=== PATIENT | female | born 1960 | race Hispanic/Latino ===

== ENCOUNTER 2021-07-07 00:52 | Emergency (ER) | payer MEDICARE ==
[~2021-07-07] VITALS: Ht 162.6 cm; Wt 97.1 kg
[~2021-07-07 00:52] MED LIST: AMIODARONE HCL200 MG PO; ARTHRITIS; ASPIRIN CHEW81 MG PO; BACTRIM DS TAB1 EACH PO; CALTRATE 600 W1 EACH PEG; FISH OIL 1,0001 EAC1 PO; HYDROXYZINE HCL25 MG PO; ISOSORBIDE MONO30 MG PO; METFORMIN HCL500 M2 PO; PREDNISONE20 MG PO; RAMIPRIL5 MG PO; RANITIDINE HCL150 MG PO; XARELTO10 MG PO
[2021-07-07 01:45] LABS: CLARITY,URINE CLEAR (CLEAR); COLOR,URINE YELLOW (YELLOW); KETONES,URINE NEGATIVE (NEGATIVE); LEUKOCYTE ESTERASE ,URINE NEGATIVE (NEGATIVE); NITRITE,URINE NEGATIVE (NEGATIVE); PROTEIN,URINE DIPSTICK NEGATIVE (NEGATIVE); URINE UROBILINOGEN 0.2 mg/dL (0.2 - 1)
[2021-07-07 01:52] LABS: BACTERIA,URINE FEW /HPF; EPITHELIAL CELLS,URINE MODERATE /LPF; RBC,URINE 0-5 /HPF (0-5)
== END 2021-07-07 02:14 | disposition home or self-care (01) ==
LOC: ER 01:18
DX: R30.0 Dysuria (principal); R10.30 Lower abdominal pain, unspecified; N39.0 Urinary tract infection, site not specified; Z96.651 Presence of right artificial knee joint
CPT/HCPCS: 81001; 99282

== ENCOUNTER 2021-10-28 10:29 | Emergency (ER) | payer MEDICARE ==
[~2021-10-28] VITALS: Ht 162.6 cm; Wt 108.7 kg
[2021-10-28] MEDS ORDERED: FLECAINIDE ACE100 MG PO (10:47)
[2021-10-28] MEDS ORDERED: SIMVASTATIN20 MG PO (10:47)
[2021-10-28] MEDS ORDERED: PYRIDIUM200 MG PO (10:51)
[2021-10-28] MEDS ORDERED: MACROBID 100 M100 MG PO (10:51)
== END 2021-10-28 11:00 | disposition home or self-care (01) ==
LOC: FSED 10:35
DX: N39.0 Urinary tract infection, site not specified (principal); M54.50 Low back pain, unspecified; I10 Essential (primary) hypertension; E11.9 Type 2 diabetes mellitus without complications; I48.91 Unspecified atrial fibrillation; E78.5 Hyperlipidemia, unspecified; Z79.02 Long term (current) use of antithrombotics/antiplatelets; Z79.84 Long term (current) use of oral hypoglycemic drugs; Z79.899 Other long term (current) drug therapy
CPT/HCPCS: 81003; 87086; 99283

== ENCOUNTER 2023-02-02 19:45 | Emergency (ER) | payer MEDICARE ==
[~2023-02-02] VITALS: Ht 162.6 cm; Wt 108.4 kg
[~2023-02-02 19:45] MED LIST changes: +FLECAINIDE ACE100 MG PO; +MACROBID 100 M100 MG PO; +PYRIDIUM200 MG PO; +SIMVASTATIN20 MG PO
[2023-02-02] MEDS ORDERED: SODIUM CHLORIDE 0.9% 1000ML 1,000 ML IV ONE (21:30)
[2023-02-02] MEDS ORDERED: HYDROCODONE/APAP 5MG-325MG TAB PO ONE (21:30)
[2023-02-02] MEDS ORDERED: HYDROCODONE/APAP 5MG-325MG TAB ONE (21:35)
[2023-02-02] MEDS ORDERED: SODIUM CHLORIDE 0.9% 1000ML 1,000 ML ONE (21:35)
[2023-02-02] MEDS ORDERED: IOPAMIDOL 370 MG/ML 100 ML INFUS..BTL INJ ONE (21:53)
== END 2023-02-03 01:38 | disposition home or self-care (01) ==
LOC: FSED 19:50
DX: S01.111A Laceration without foreign body of right eyelid and periocular area, initial encounter (principal); S62.613A Displaced fracture of proximal phalanx of left middle finger, initial encounter for closed fracture; R55 Syncope and collapse; S20.212A Contusion of left front wall of thorax, initial encounter; W01.198A Fall on same level from slipping, tripping and stumbling with subsequent striking against other object, initial encounter; Y93.01 Activity, walking, marching and hiking; Y92.89 Other specified places as the place of occurrence of the external cause; D68.9 Coagulation defect, unspecified; E11.9 Type 2 diabetes mellitus without complications; I10 Essential (primary) hypertension; E78.5 Hyperlipidemia, unspecified; I48.91 Unspecified atrial fibrillation; F41.9 Anxiety disorder, unspecified; Z96.651 Presence of right artificial knee joint
CPT/HCPCS: 12011; 26725; 70450; 70486; 71260; 73130; 73140; 80053; 81003; 82553; 84484; 85025; 85379; 93005; 99284; J7030; Q9967